=== PATIENT | male | born 1965 | race Caucasian/White ===

== ENCOUNTER 2017-01-29 13:32 | Inpatient (IN) | payer BC ==
--- NOTE | ~2017-01-29 | CN ---
Consultation Report [facility] [address] [place]. [address] NAME: CIARRA SEO JR : 65 STATUS : ADM IN PAT#: [id number] AGE: 51 ADM/REG DATE : 01/29/17 MR#: [id number] REPORT SERV DATE: 01/30/17 DICTATED BY: ODETTE WASHINGTON DATE: 01/30/17 REPORT STATUS : Draft TRANSCRIBED BY: MODL DATE: 01/30/17 GI CONSULTATION NOTE DATE OF CONSULTATION: 01/29/2017 REASON FOR CONSULTATION: Pancreatitis. HISTORY OF PRESENTING ILLNESS: Mr. Seo is a 51-year-old white male with a history of tobacco and alcohol use, who presented to [facility] earlier today with a chief complaint of abdominal pain and fatigue. He was found to have a lipase of 641, upper limit of normal is 393, bilirubin 0.6, AST 26, AST 41, alkaline phosphatase 179, was [address] scan showed normal appearing liver and spleen. Gallbladder without any stones or wall thickening, but pancreas appeared to have coarse calcifications throughout the head and the body consistent with chronic pancreatitis. A 2-cm hypodensity was also noted in the head of the pancreas. Abdominal ultrasound was subsequently performed, which showed fatty liver. Common bile duct was measured to be 0.96. Gallbladder has some sludge, but there is no thickening, stranding of biliary dilatation, and on ultrasound the pancreas appeared to be normal. He has had no GI evaluation in the past, although he has a history of alcohol use. He reports of cutdown significantly over the past couple of years to only 2 beers per week, but admits to much more extensive alcohol history previously. PAST MEDICAL HISTORY: Alcohol and tobacco. FAMILY HISTORY: No history of GI malignancy or disease. SOCIAL HISTORY: Smoking, alcohol as above. MEDICATIONS AND ALLERGIES: Reviewed. PHYSICAL EXAMINATION: VITAL SIGNS: The patient is afebrile and his vital signs have been stable. GENERAL: The patient is a thin gentleman, appears older than stated age, in no acute distress. HEENT: Atraumatic, normocephalic. Anicteric. Mucous membranes moist. CARDIAC: S1, S2. CHEST: Clear. ABDOMEN: Soft, nondistended, but tender to palpation diffusely mostly in the epigastrium and right upper quadrant. No rebound or guarding. Bowel sounds normoactive. LABORATORY DATA: Showed WBC 7.5, hemoglobin 11.5, hematocrit 43.1, platelets 225. Sodium 140, potassium 3.8, chloride 108, bicarb 24, BUN 5, creatinine 0.58, glucose 78. Bilirubin 0.6, AST 26, ALT 41, alkaline phosphatase 179, lipase 641 (upper limit of normal 393). CT and ultrasound as described above. Consultation Report [address] [place]. [address] NAME: CIARRA SEO JR : 65 STATUS : ADM IN [facility]#: [id number] AGE: 51 ADM/REG DATE : 01/29/17 MR#: [id number] REPORT SERV DATE: 01/30/17 DICTATED BY: ODETTE WASHINGTON DATE: 01/30/17 REPORT STATUS : Draft TRANSCRIBED BY: LILI DATE: 01/30/17 IMPRESSION AND PLAN: The patient with chronic pancreatitis may have mild flare up of acute on chronic pancreatitis, but this is a new diagnosis for him and he does have a 2-cm lesion noted on his CT scan. We will order a CA-19-9 and endoscopic ultrasound to further evaluate these findings. I have discussed this with the patient and questions and concerns were addressed. I have also counseled him with regard to quitting smoking and alcohol use completely. Previous dictation had been cut off. CORY/LILI Odette Washington MD / [id number] CC: Heaven Dash M.D.
--- NOTE | ~2017-01-29 | HP ---
History And Physical [facility] [address] [place]. [address] NAME: CIARRA US JR : 65 STATUS : ADM IN PAT#: [id number] AGE: 51 ADM/REG DATE : 01/29/17 MR#: [id number] REPORT SERV DATE: 01/29/17 DICTATED BY: SUNNY LICEA DATE: 01/29/17 REPORT STATUS : Draft TRANSCRIBED BY: MODL DATE: 01/29/17 DATE OF ADMISSION: 01/29/2017 CHIEF COMPLAINT: Abdominal pain. BRIEF HISTORY OF PRESENT ILLNESS: The patient is a 51-year-old white male, who was referred from Dr. Osborne' office where he had presented with some abdominal pain as he had not seen a physician for the last two years. He has been having this problem for the last two years to three years where he says his insides have been torn out. Every time he eats he feels like the food is not moving and is not digesting. He has significant abdominal pain with nausea, but no vomiting. He is afraid of eating over the last few weeks. This has continued to a point where he sought help from Dr. Dylon Burns. Dr. Burns did some blood work, found an elevated lipase of about 500 and an amylase of about 188. Thinking that this was pancreatitis related to alcoholism, the patient was referred to the Hospitalist Service. In talking to this patient, this patient denies any diarrhea. He has noticed some more constipation. He has not had any significant vomiting. He has not had any black or tarry looking stools. He reports that he is unable to eat. He has lost about 35 pounds of weight in the last six months to a year. He continues to drink, but he says he has slacked off some. He continues to smoke two packs per day. He reports that his symptoms are worse after eating and that is why he does not eat up a whole lot, not even smaller meals. He denies any fevers or chills. He has not had any chest pain to report off. He has not had any jaw pain or arm pain. He has not had any lower extremity numbness, tingling, or any other constitutional symptoms. REVIEW OF SYSTEMS: A 12-point review of systems otherwise negative except for what is noted in the HPI. 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 PAST SURGICAL HISTORY: Significant for hernia repair in childhood and coronary arteriogram with a stent placement. ALLERGIES: TO HYDROCODONE. HOME MEDICATIONS: He reported none prescribed. He said he was getting morphine at times from the emergency room, oxycodone or Percocet from the emergency room where he would present with abdominal pain and they would give him pain medication. He has been eating Tylenol and ibuprofen at least four to five times daily, and at times less than that. This has been ongoing for the last two to three months. He said he also reported taking Protonix, but recently was given Dexilant, and the last Dexilant dose was about two weeks. SOCIAL HISTORY: He continues to drink. He is unable to quantify, but he says he drank two beers last night. He has smokes two packs of cigarettes since he was 16 years of age. He denies use of illicit substances except marijuana, last smoked about one week ago. He does use opiates like morphine and Percocet. History And Physical [address] [place]. [address] NAME: CIARRA US JR : 65 STATUS : ADM IN [facility]#: [id number] AGE: 51 ADM/REG DATE : 01/29/17 MR#: [id number] REPORT SERV DATE: 01/29/17 DICTATED BY: SUNNY LICEA DATE: 01/29/17 REPORT STATUS : Draft TRANSCRIBED BY: LILI DATE: 01/29/17 FAMILY HISTORY: Mother recently of liver cancer and father had heart disease and reflux. But the patient is adopted, so no direct family history is noted. PHYSICAL EXAMINATION: GENERAL: White male, lying on a gurney, appears to be in no obvious respiratory distress. He is awake, alert, he is oriented. Very thin and chronically ill appearing. VITAL SIGNS: Vital signs will be reviewed when available from nursing staff. HEENT: Head is normocephalic, atraumatic. Pupils are equal, round, and reactive to light. Extraocular muscles are intact. Sclerae are anicteric. Conjunctivae normal. Oropharynx without lesion. Tongue protrusion midline. Uvula midline. NECK: Supple. No jugular venous distention. No carotid bruits or thyromegaly is appreciated. No lymphadenopathy in the neck is palpable. Muscle wasting of the neck is noted with sunken supraclavicular muscles is noted. CHEST: Somewhat barrel chested. HEART: Distant. Regular rate and rhythm. No murmurs, rubs, or gallops. PMI nondisplaced. LUNGS: Fairly clear to auscultation both anteriorly and posteriorly without rales, rhonchi, wheezing, or consolidation. ABDOMEN: Very scaphoid soft, nontender. Good bowel sounds. No rebound or guarding. No organomegaly is appreciated. Devries sign is negative. Femoral pulses are equal and symmetrical bilaterally. EXTREMITIES: Without cyanosis, clubbing, or edema. NEUROLOGICAL: Seems to be grossly intact. LABS: Done yesterday by Dr. Burns. A comprehensive metabolic panel, electrolytes were fairly normal with a creatinine of 0.61, calcium was 8.3, total protein was 5.8, albumin was 3.6. Alkaline phosphatase was slightly elevated at 205. Rest of the liver function studies were negative. Amylase was 188, lipase was 570. IMPRESSION: 1. Acute on chronic pancreatitis. 2. Erosive gastritis with possible peptic ulcer disease. 3. Coronary artery disease. 4. Failure to thrive. 5. Alcoholism. 6. Tobacco abuse. PLAN: The patient will be admitted. IV fluids will be given. Reasonable pain control will be offered. GI consultation for an upper endoscopy to rule out peptic ulcer disease will be ordered. A CT scan of the abdomen and pelvis will be ordered full with p.o. and IV contrast. Ultrasound of the gallbladder to rule out cholelithiasis. We will prophylax patient with thiamine and folate and watch for DTs. We will check routine labs. The patient remains a full code. This was discussed with the patient and the father at the bedside. They understand and agree with the current plan of care. History And Physical [address] [place]. [address] NAME: CIARRA US : 65 STATUS : ADM IN [facility]#: [id number] AGE: 51 ADM/REG DATE : 01/29/17 MR#: [id number] REPORT SERV DATE: 01/29/17 DICTATED BY: SUNNY LICEA DATE: 01/29/17 REPORT STATUS : Draft TRANSCRIBED BY: MODKarolyn DATE: 01/29/17 SV/MODL Sunny Licea M.D. / [id number] CC: Heaven Dash M.D.
--- NOTE | ~2017-01-29 | DS ---
Discharge Summary [place] [id number] [facility] [place]. [address] NAME: CIARRA US JR : 65 STATUS : DIS IN PAT#: [id number] AGE: 51 ADM/REG DATE : 01/29/17 MR#: [id number] REPORT SERV DATE: 02/02/17 DICTATED BY: SUNNY LICEA DATE: 02/01/17 REPORT STATUS : Draft TRANSCRIBED BY: MODL DATE: 02/01/17 ADMISSION DATE: 01/29/2017 DISCHARGE DATE: 02/01/2017 DISCHARGE DIAGNOSES: 1. Chronic pancreatitis. 2. Erosive gastritis. 3. Failure to thrive. 4. Chronic obstructive pulmonary disease, currently not requiring treatment. 5. Hypertension. 6. Alcoholism. 7. Tobacco abuse. CONSULTANTS DURING THIS HOSPITALIZATION: Dr. Maria Fernanda Washington of Gastroenterology, Dr. Sinan Pradhan of Gastroenterology. INVASIVE PROCEDURES DONE DURING THE HOSPITALIZATION: EGD with ERCP and EUS showing no evidence of pancreatic mass, significant calcification in the head of the pancreas with a dilated pancreatic duct consistent with chronic pancreatitis. BRIEF HISTORY OF PRESENT ILLNESS: The patient is a 51-year-old male referred from Dr. Burns's office where he presented with abdominal pain and found to have an elevated lipase. For detailed history and physical exam, please see my note dictated on 01/29/2017. HOSPITAL COURSE: After being admitted to the hospital, this patient initially was kept n.p.o., IV fluids were given. Reasonable pain control was offered. GI consultation was obtained. CT of the abdomen and pelvis was done. An ultrasound of the gallbladder was ordered. CT of the abdomen and pelvis showed chronic pancreatitis with questionable mass. Ultrasound of the gallbladder showed bile sludge with possibility of an increased common bile duct size. A CA-19-9 was also drawn which was 430. Dr. Washington saw the patient in consultation, recommended an EGD with ERCP. This was done by Dr. Sinan Pradhan who specializes in this area and there was no significant pathology in the common bile duct. Endoscopic sonographic imaging of the pancreas showed sonographic changes consistent with moderate to severe chronic pancreatitis. No masses were seen in the pancreas, but the exam was limited by significant calcifications in the head of the pancreas. No further intervention was done, however, a recommendation of an MRCP was made by Dr. Pradhan in four weeks. This could be done in the outpatient setting. This patient felt well. He was tolerating a regular diet. I discussed with him the effects of alcoholism on his pancreas and the risk of smoking, and for both of these habits, we encouraged him to cease using alcohol and tobacco. He remained stable otherwise and is being discharged in stable condition. His lipase on the day of discharge was 720, but otherwise, he has no symptoms. He was started on Creon pancreatic enzymes for chronic pancreatitis. DISCHARGE DISPOSITION: Home. DISCHARGE ACTIVITY: As tolerated. Discharge Summary [place] [id number] [facility] [place]. [address] NAME: CIARRA US JR : 65 STATUS : DIS IN PAT#: [id number] AGE: 51 ADM/REG DATE : 01/29/17 MR#: [id number] REPORT SERV DATE: 02/02/17 DICTATED BY: SUNNY LICEA DATE: 02/01/17 REPORT STATUS : Draft TRANSCRIBED BY: LILI DATE: 02/01/17 DISCHARGE DIET: Low fat diet. DISCHARGE MEDICATIONS: Creon 24,000 units p.o. two tablets three times daily prior to each meal, aspirin 325 mg once daily, Habitrol patch one patch daily, Protonix 40 mg daily, Klonopin 0.5 mg twice daily and 1 mg at bedtime, Catapres 0.05 mg twice daily. DISCHARGE FOLLOWUP: With Dr. Dylon Burns in three to four weeks. With Dr. Maria Fernanda Washington in two weeks. More than 30 minutes spent planning this patient's discharge, reconciling medications, writing prescriptions, discussing hospital care, and followup with the patient, and documenting this discharge. SOFI/LILI Sunny Licea M.D. / [id number] CC: Heaven Dash M.D. Camille Sommer, MD
--- NOTE | ~2017-01-29 | EGD ---
EGD REPORT [facility] [address] [address] NAME: CIARRA SEO JR : 65 STATUS : ADM IN PAT#: [id number] AGE: 51 ADM/REG DATE : 01/29/17 MR#: [id number] REPORT SERV DATE: 01/31/17 DICTATED BY: SINAN CHAMBERS DATE: 01/31/17 REPORT STATUS : Draft [facility]ANS[facility]ED [facility]: [facility] DATE: 01/31/17 Endoscopy Center Patient Name: Ciarra Seo Date of : 1965 Attending MD: SINAN CHAMBRES MD Procedure Date No Time: 01/31/2017 Procedure: Upper EUS Indications: Suspected chronic pancreatitis, Abnormal CT of the GI tract Referring MD: ALEJO DING Medicines: Monitored Anesthesia Care Complications: No immediate complications. Estimated blood loss: None. Procedure: Pre-Anesthesia Assessment: - ASA Grade Assessment: III - A patient with severe systemic disease. After obtaining informed consent, the endoscope was passed under direct vision. Throughout the procedure, the patient's blood pressure, pulse, and oxygen saturations were monitored continuously. The Endoscope was introduced through the mouth, and advanced to the second part of duodenum. The upper EUS was accomplished without difficulty. The patient tolerated the procedure well. Findings: Endosonographic Finding : There was no sign of significant endosonographic abnormality in the common bile duct. No stones and no biliary sludge were identified. CBD 6 mm. Endosonographic imaging of the visualized portion of the liver showed no abnormalities. Endosonographic imaging of the pancreas showed sonographic changes indicative of moderate-severe chronic pancreatitis in the entire pancreas. The parenchyma had hyperechoic foci with shadowing and lobularity without honeycombing. The pancreatic duct had duct dilation. The pancreatic duct measured up to 6 mm in diameter. Changes of chronic pancreatitis was most prominent in the head, with extensive shadowing calfications, limiting evaluation of the parenchyma.\E\i Endosonographic imaging of the pancreas showed no cyst/pseudocyst, no mass and no pancreas divisu, although evaluation of the head of the pancreas was limited by extensive shadowing calcifications. No lymphadenopathy seen. A limited doppler examination was performed and revealed no significant vascular abnormalities. EGD REPORT [address] [address] NAME: CIARRA SEO : 65 STATUS : ADM IN PAT#: [id number] AGE: 51 ADM/REG DATE : 01/29/17 MR#: [id number] REPORT SERV DATE: 01/31/17 DICTATED BY: SINAN CHAMBERS DATE: 01/31/17 REPORT STATUS : Draft TRANSCRIBED BY: [employer] DATE: 01/31/17 Impression: - There was no sign of significant pathology in the common bile duct. - Endosonographic imaging of the pancreas showed sonographic changes consistent with moderate-severe chronic pancreatitis. - No mass was seen in the pancreas, although examination was limited by significant calcifications in the head of the pancreas. Recommendation: - Return patient to [facility] for [facility] care. - Perform MRCP in 4 weeks. Procedure Code(s): --- Professional --- 90741, Esophagogastroduodenoscopy, flexible, transoral; with endoscopic ultrasound examination, including the esophagus, stomach, and either the duodenum or a surgically altered stomach where the jejunum is examined distal to the anastomosis Diagnosis Code(s): --- Professional --- R93.3, Abnormal findings on diagnostic imaging of other parts of digestive tract CPT copyright 2013 [employer]. All rights reserved. The codes documented in this report are preliminary and upon squilgeer review may be revised to meet current compliance requirements. Sinan Chambers MD SINAN CHAMBERS MD 01/31/2017 8:39 AM This report has been signed electronically. Number of Addenda: 0 Note Initiated On: 01/31/2017 8:01 AM Scope Withdrawal Time 0 hours 0 minutes 0 seconds [address] [place] [address]
[~2017-01-29 13:32] MED LIST: ASAB PO; LIOR10 PO; LOP25 PO; VITAMIN D1000 UNI1 PO
[2017-01-29] MEDS ORDERED: KLONO5 PO (17:14)
[2017-01-29] MEDS ORDERED: CAT1 PO (17:14)
[2017-01-29] MEDS ORDERED: HABIT21 TOP (17:15)
[2017-01-29] MEDS ORDERED: ASABAYER PO (17:15)
[2017-01-29] MEDS ORDERED: PROTONIX PO (17:15)
[2017-01-29] MEDS ORDERED: KLONO1 PO (17:15)
[2017-01-29 18:25] LABS: BASOPHILS 1.2 %; BASOPHILS ABSOLUTE 0.09 10/3/uL (0.0-0.16); EOSINOPHILS 3.1 %; EOSINOPHILS ABSOLUTE 0.23 10/3/uL (0.0-0.53); HEMATOCRIT 43.1 % (40.0-51.0); HEMOGLOBIN 14.5 g/dL (13.6-17.8); IMMATURE GRANULOCYTES 0.1 %; IMMATURE GRANULOCYTES ABSOLUTE 0.01 10/3/uL (0.0-0.11); LYMPHOCYTES 27.8 %; LYMPHOCYTES ABSOLUTE 2.07 10/3/uL (0.67-4.30); MEAN CORPUS HGB CONC 33.6 g/dL (32.0-36.0); MEAN CORPUSCULAR HEMOGLOB 32.8 pg (26.0-34.0); MEAN CORPUSCULAR VOLUME 97.5 fL (80-100); MEAN PLATELET VOLUME 10.3 fL (9.2-13.0); MONOCYTES 9.9 %; MONOCYTES ABSOLUTE 0.74 10/3/uL (0.21-1.20); NEUTROPHILS 57.9 %; NEUTROPHILS ABSOLUTE 4.31 10/3/uL (2.02-8.40); PLATELET COUNT 225 10/3/uL (150-400); RBC DISTRIBUTION WIDTH 15.5 % (12.0-16.0); RED CELL COUNT 4.42 10/6/uL (4.7-6.1); WHITE BLOOD CELLS 7.5 10/3/uL (4.5-10.5)
[2017-01-29 18:29] LABS: MANUAL DIFF NO %
[2017-01-29 18:37] LABS: ACETAMINOPHEN LEVEL (TYLENOL) 2.7 MCG/ML (10.0-20.0); ALBUMIN 3.4 G/DL (3.5-5.0); BUN (BLOOD UREA NITROGEN) 5 MG/DL (6-23); CALCIUM, SERUM 8.1 MG/DL (8.5-10.4); CHLORIDE, SERUM 108 MMOL/L (96-112); CO2 (CARBON DIOXIDE) 24 MMOL/L (24-34); CREATININE 0.58 MG/DL (0.70-1.30); FERRITIN 63 NG/ML (26-388); FREE T4 0.85 NG/DL (0.76-1.46); GFR AFRICAN AMERICAN 137 ML/MIN (>=60); GFR NON AFRICAN AMERICAN 118 ML/MIN (>=60); GLUCOSE, SERUM 78 MG/DL (60-99); IRON BINDING CAPACITY 298 MCG/DL (250-450); IRON, SERUM 61 MCG/DL (35-150); POTASSIUM, SERUM 3.8 MMOL/L (3.5-5.3); SGOT(AST) 26 U/L (5-40); SGPT(ALT) 41 U/L (5-65); SODIUM, SERUM 140 MMOL/L (135-148); TOTAL BILIRUBIN 0.6 MG/DL (0-1.2); TOTAL PROTEIN 6.1 G/DL (6.0-8.5)
[2017-01-29 18:39] LABS: A/G RATIO 1.3 (0.7-1.9); ALKALINE PHOSPHATASE 179 U/L (45-117); GLOBULIN 2.7 G/DL (2.5-4.1)
[2017-01-29 20:21] LABS: PROCALCITONIN <0.05 ng/mL (<0.5)
[2017-01-30 04:32] LABS: BASOPHILS 1.4 %; BASOPHILS ABSOLUTE 0.07 10/3/uL (0.0-0.16); EOSINOPHILS 7.9 %; EOSINOPHILS ABSOLUTE 0.39 10/3/uL (0.0-0.53); HEMATOCRIT 39.9 % (40.0-51.0); HEMOGLOBIN 13.6 g/dL (13.6-17.8); IMMATURE GRANULOCYTES 0.2 %; IMMATURE GRANULOCYTES ABSOLUTE 0.01 10/3/uL (0.0-0.11); LYMPHOCYTES 39.3 %; LYMPHOCYTES ABSOLUTE 1.94 10/3/uL (0.67-4.30); MEAN CORPUS HGB CONC 34.1 g/dL (32.0-36.0); MEAN CORPUSCULAR HEMOGLOB 33.3 pg (26.0-34.0); MEAN CORPUSCULAR VOLUME 97.6 fL (80-100); MEAN PLATELET VOLUME 10.5 fL (9.2-13.0); MONOCYTES 12.8 %; MONOCYTES ABSOLUTE 0.63 10/3/uL (0.21-1.20); NEUTROPHILS 38.4 %; PLATELET COUNT 199 10/3/uL (150-400); RBC DISTRIBUTION WIDTH 15.4 % (12.0-16.0); RED CELL COUNT 4.09 10/6/uL (4.7-6.1); WHITE BLOOD CELLS 4.9 10/3/uL (4.5-10.5)
[2017-01-30 04:34] LABS: MANUAL DIFF NO %
[2017-01-30 04:51] LABS: BUN (BLOOD UREA NITROGEN) 5 MG/DL (6-23); CA-19-9 400.9 U/ML (< 37.0); CALCIUM, SERUM 8.1 MG/DL (8.5-10.4); CHLORIDE, SERUM 109 MMOL/L (96-112); CO2 (CARBON DIOXIDE) 24 MMOL/L (24-34); CREATININE 0.54 MG/DL (0.70-1.30); GFR AFRICAN AMERICAN 141 ML/MIN (>=60); GFR NON AFRICAN AMERICAN 122 ML/MIN (>=60); GLUCOSE, SERUM 86 MG/DL (60-99); PHOSPHORUS, SERUM 3.6 MG/DL (2.5-4.5); POTASSIUM, SERUM 3.8 MMOL/L (3.5-5.3); SODIUM, SERUM 141 MMOL/L (135-148)
[2017-01-30 05:01] LABS: ALBUMIN 2.5 G/DL (3.5-5.0)
[2017-01-31 05:56] LABS: BASOPHILS 0.6 %; BASOPHILS ABSOLUTE 0.03 10/3/uL (0.0-0.16); EOSINOPHILS ABSOLUTE 0.24 10/3/uL (0.0-0.53); HEMATOCRIT 43.2 % (40.0-51.0); HEMOGLOBIN 14.6 g/dL (13.6-17.8); IMMATURE GRANULOCYTES 0.2 %; IMMATURE GRANULOCYTES ABSOLUTE 0.01 10/3/uL (0.0-0.11); LYMPHOCYTES 33.4 %; LYMPHOCYTES ABSOLUTE 1.61 10/3/uL (0.67-4.30); MEAN CORPUS HGB CONC 33.8 g/dL (32.0-36.0); MEAN CORPUSCULAR HEMOGLOB 33.3 pg (26.0-34.0); MEAN CORPUSCULAR VOLUME 98.6 fL (80-100); MEAN PLATELET VOLUME 10.6 fL (9.2-13.0); MONOCYTES 13.3 %; MONOCYTES ABSOLUTE 0.64 10/3/uL (0.21-1.20); NEUTROPHILS 47.5 %; NEUTROPHILS ABSOLUTE 2.29 10/3/uL (2.02-8.40); PLATELET COUNT 198 10/3/uL (150-400); RBC DISTRIBUTION WIDTH 15.2 % (12.0-16.0); RED CELL COUNT 4.38 10/6/uL (4.7-6.1); WHITE BLOOD CELLS 4.8 10/3/uL (4.5-10.5)
[2017-01-31 06:05] LABS: MANUAL DIFF NO %
[2017-01-31 06:07] LABS: INTERNATIONAL NORMAL RATI 1.1 UNITS (-); PROTIME (NOT ORD) 14.3 SEC (12.0-14.5)
[2017-01-31 06:32] LABS: ALBUMIN 2.5 G/DL (3.5-5.0); BUN (BLOOD UREA NITROGEN) 4 MG/DL (6-23); CHLORIDE, SERUM 108 MMOL/L (96-112); CO2 (CARBON DIOXIDE) 24 MMOL/L (24-34); CREATININE 0.59 MG/DL (0.70-1.30); GFR AFRICAN AMERICAN 136 ML/MIN (>=60); GFR NON AFRICAN AMERICAN 117 ML/MIN (>=60); GLUCOSE, SERUM 103 MG/DL (60-99); PHOSPHORUS, SERUM 3.3 MG/DL (2.5-4.5); POTASSIUM, SERUM 4.2 MMOL/L (3.5-5.3); SGOT(AST) 15 U/L (5-40); SGPT(ALT) 30 U/L (5-65); SODIUM, SERUM 141 MMOL/L (135-148); TOTAL BILIRUBIN 0.5 MG/DL (0-1.2)
[2017-01-31 06:33] LABS: ALKALINE PHOSPHATASE 130 U/L (45-117); DIRECT BILIRUBIN < 0.1 MG/DL (0.0-0.4); INDIRECT BILIRUBIN(NOT ORDER) 0.4 MG/DL (0.1-0.9); TOTAL PROTEIN 4.8 G/DL (6.0-8.5)
[2017-02-01] MEDS ORDERED: CREON DR 36,001 EACH PO (08:52)
[2017-07-02] MEDS ORDERED: IBU-200200 MG PO (11:45)
== END 2017-02-01 14:37 | disposition home or self-care (01) | DRG 440 ==
LOC: 4SO 13:32
PROVIDERS: Internal Medicine; Nurse Practitioner Family
DX: K85.20 Alcohol induced acute pancreatitis without necrosis or infection (principal); I10 Essential (primary) hypertension; K86.0 Alcohol-induced chronic pancreatitis; F10.20 Alcohol dependence, uncomplicated; K29.20 Alcoholic gastritis without bleeding; I25.10 Atherosclerotic heart disease of native coronary artery without angina pectoris; R62.7 Adult failure to thrive; Z72.0 Tobacco use; J44.9 Chronic obstructive pulmonary disease, unspecified; Z95.5 Presence of coronary angioplasty implant and graft
CPT/HCPCS: 74177; 76705; 80053; 80069; 80076; 82140; 82150; 82728; 82962; 83540; 83550; 83605; 83690; 83735; 84145; 84439; 84443; 85025; 85610; 86301; A9270-GY; C1725; C9113; G0480; J1170; J2405

== ENCOUNTER 2017-07-03 06:42 | Day surgery (SDC) | payer BC ==
[~2017-07-03] VITALS: Ht 182.9 cm; Wt 64.9 kg
--- NOTE | ~2017-07-03 | EGD ---
EGD REPORT [facility] [address] [place] [address] NAME: CIARRA SEO JR : 65 STATUS : REG [facility] PAT#: [id number] AGE: 51 ADM/REG DATE : 07/03/17 MR#: [id number] REPORT SERV DATE: 07/03/17 DICTATED BY: ODETTE TRIMBLE DATE: 07/03/17 REPORT STATUS : Draft TRANSCRIBED BY: [facility] DATE: 07/03/17 Endoscopy Center Patient Name: Ciarra Seo Date of : 1965 Attending MD: ODETTE TRIMBLE, Procedure Date No Time: 07/03/2017 Procedure: Colonoscopy Indications: Screening for colorectal malignant neoplasm, This is the patient's first colonoscopy Referring MD: ALEJO DING Medicines: Propofol per Anesthesia Complications: No immediate complications. Estimated blood loss: None. Procedure: Pre-Anesthesia Assessment: - ASA Grade Assessment: III - A patient with severe systemic disease. After I obtained informed consent, the scope was passed under direct vision. Throughout the procedure, the patient's blood pressure, pulse, and oxygen saturations were monitored continuously. The [facility] [id number] was introduced through the anus and advanced to the cecum, identified by appendiceal orifice and ileocecal valve. The colonoscopy was performed with ease. The patient tolerated the procedure well. The quality of the bowel preparation was good. The ileocecal valve, appendiceal orifice and rectum were photographed. Findings: The perianal and digital rectal examinations were normal. A hyperplastic-appearing polyp was found in the sigmoid colon. The polyp was 3 mm in size. The polyp was removed with a cold biopsy forceps. Resection and retrieval were complete. Estimated blood loss: none. A few small-mouthed diverticula were found in the sigmoid colon. The exam was otherwise without abnormality on direct and retroflexion views. Impression: - One 3 mm polyp in the sigmoid colon. Resected and retrieved. - Diverticulosis in the sigmoid colon. - The examination was otherwise normal on direct and retroflexion views. Recommendation: - Patient has a contact number available for emergencies. The signs and symptoms of potential delayed complications were discussed with the patient. Return to normal activities tomorrow. Written discharge EGD REPORT [address] [place]. [address] NAME: CIARRA SEO JR : 65 STATUS : REG [facility] PAT#: [id number] AGE: 51 ADM/REG DATE : 07/03/17 MR#: [id number] REPORT SERV DATE: 07/03/17 DICTATED BY: ODETTE TRIMBLE DATE: 07/03/17 REPORT STATUS : Draft TRANSCRIBED BY: [employer] DATE: 07/03/17 instructions were provided to the patient. - Regular diet. - Discharge patient to home (with escort). - Continue present medications. - Await pathology results. - Repeat colonoscopy in 5-10 years for surveillance based on pathology results. - Return to GI clinic to discuss pathology results with nurse practioner in 2-4 weeks. Procedure Code(s): --- Professional --- 39152, Colonoscopy, flexible, proximal to splenic flexure; with biopsy, single or multiple Diagnosis Code(s): --- Professional --- D12.5, Benign neoplasm of sigmoid colon K57.30, Diverticulosis of large intestine without perforation or abscess without bleeding Z12.11, Encounter for screening for malignant neoplasm of colon CPT copyright 2013 [employer]. All rights reserved. The codes documented in this report are preliminary and upon log marker review may be revised to meet current compliance requirements. ODETTE TRIMBLE, 07/03/2017 8:27 AM This report has been signed electronically. Number of Addenda: 0 Note Initiated On: 07/03/2017 7:54 AM Scope Withdrawal Time 0 hours 15 minutes 15 seconds [id number] [place] [id number]
[~2017-07-03 06:42] MED LIST changes: +ASABAYER PO; +CAT1 PO; +CREON DR 36,001 EACH PO; +HABIT21 TOP; +IBU-200200 MG PO; +KLONO1 PO; +KLONO5 PO; +PROTONIX PO
== END 2017-07-03 23:59 | disposition home health service (06) ==
LOC: DMU 06:42
PROVIDERS: Internal Medicine Gastroenterology
PROC: 0DBN8ZZ Excision of Sigmoid Colon, Via Natural or Artificial Opening Endoscopic (ICD-10-PCS; principal; 2017-07-03 09:00)
DX: Z12.11 Encounter for screening for malignant neoplasm of colon (principal); K57.30 Diverticulosis of large intestine without perforation or abscess without bleeding; I25.10 Atherosclerotic heart disease of native coronary artery without angina pectoris; I10 Essential (primary) hypertension; J44.9 Chronic obstructive pulmonary disease, unspecified; F17.210 Nicotine dependence, cigarettes, uncomplicated; Z88.5 Allergy status to narcotic agent; Z79.82 Long term (current) use of aspirin; Z79.899 Other long term (current) drug therapy; Z98.890 Other specified postprocedural states
CPT/HCPCS: 88305